=== PATIENT | male | born 1970 | race Two or more races ===

== ENCOUNTER 2023-10-30 01:40 | Emergency (ER) | payer SELFPAY ==
[~2023-10-30] VITALS: Ht 172.7 cm; Wt 86.0 kg
[2023-10-30 01:49] VITALS: O2SAT 97
[2023-10-30 04:01] LABS: HEMATOCRIT. 41.9 % (42.0-52.0); HEMOGLOBIN. 14.1 g/dL (14.0-18.0); MEAN CORPUSCULAR HGB CONC 33.7 g/dL (31.0-37.0); MEAN CORPUSCULAR VOLUME 92.1 fL (80.0-94.0); MEAN PLATELET VOLUME 7.1 fl (7.4-10.4); PLATELET 308 x1000/uL (130-400); RED BLOOD CELL COUNT 4.55 mill/uL (4.7-6.1); RED CELL DISTRIBUTION WIDTH 13.1 % (11.6-14.6); WHITE BLOOD COUNT 12.2 x1000/uL (4.5-11.0)
[2023-10-30 04:05] LABS: DIFFERENTIAL COMMENT 1
[2023-10-30 04:10] LABS: CHLORIDE 105 mEq/L (98-107); POTASSIUM 4.2 mEq/L (3.5-5.1); SODIUM 141 mEq/L (136-145)
[2023-10-30 04:11] LABS: CALCIUM 9.2 mg/dL (8.7-10.4); CARBON DIOXIDE 29 mEq/L (21-32)
[2023-10-30 04:16] LABS: CREATININE 1.1 mg/dL (0.6-1.3); GLUCOSE 133 mg/dL (70-105); UREA NITROGEN BLOOD 14 mg/dL (9-23)
[2023-10-30 04:18] LABS: ALANINE AMINOTRANSFERASE 41 IU/L (10-49); ALBUMIN 4.3 g/dL (3.2-4.8); ASPARTATE AMINOTRANSFERASE 29 IU/L (<34); BILIRUBIN DIRECT 0.2 mg/dL (<=3.0); BILIRUBIN TOTAL 0.6 mg/dL (0.1-1.0)
[2023-10-30 04:26] LABS: CLARITY URINE TURBID (CLEAR); COLOR URINE YELLOW (YELLOW); GLUCOSE URINE NEGATIVE (NEGATIVE); KETONES URINE TRACE (NEGATIVE); LEUKOCYTE ESTERASE URINE NEGATIVE (NEGATIVE); NITRITE URINE NEGATIVE (NEGATIVE); OCCULT BLOOD URINE 2+ (NEGATIVE); PH URINE 5.5 (4.5-8.0); PROTEIN URINE 1+ (NEGATIVE); SPECIFIC GRAVITY URINE 1.036 (1.005-1.030)
[2023-10-30] MEDS: KETOROLAC 30MG/ML VIAL IV STA (04:54)
[2023-10-30] MEDS: ONDANSETRON HCL 4MG/2ML INJ IV STA (04:54)
[2023-10-30] MEDS: SODIUM CHLORIDE 0.9% 1,000 ML IV ONE (04:54)
[2023-10-30] MEDS ORDERED: IBUP-2028 MT (05:54)
[2023-10-30] MEDS ORDERED: ONDA4TAB50 MT (05:54)
[2023-10-30] MEDS ORDERED: TAMS-11 MT (05:54)
[2023-10-30 06:17] VITALS: BP 143/83; PULSE 66; RESP 21; TEMP 98.6
[2023-10-30 07:08] LABS: SQUAMOUS EPITHELIAL CELL URINE RARE /lpf (RARE/1+)
[2023-10-30 07:10] LABS: BACTERIA URINE NONE SEEN; RBC URINE 0-2 /hpf (0-2); WBC URINE NONE SEEN /hpf (0-2)
[2023-10-30 07:11] LABS: AMORPHOUS SEDIMENT URINE 1+ /lpf
[2023-10-30 07:45] LABS: PLATELET ESTIMATE NORMAL
== END 2023-10-30 06:25 | disposition home or self-care (01) ==
LOC: ER 01:53
DX: R10.12 Left upper quadrant pain (principal); R11.10 Vomiting, unspecified; R30.0 Dysuria; Z87.19 Personal history of other diseases of the digestive system
CPT/HCPCS: 99285; 74176; 96374; 96361; 96375; 80076; 80048; 81003; 83690; 85025; 36415; J1885; J2405; J7030